=== PATIENT | female | born 1965 | race Caucasian/White ===

== ENCOUNTER 2019-08-22 16:58 | Emergency (ER) | payer OTHER ==
[~2019-08-22] VITALS: Ht 177.8 cm; Wt 70.3 kg
[~2019-08-22 16:58] MED LIST: PARO10TA4 PO; RISP4TAB17 PO
--- NOTE | 2019-08-22 17:10 | NUR ---
BIB [facility] FOR PSYCH EVAL, PT STATES SHE WANT'S TO KILL EVERYONE. pt awake, alert, -sob, nad noted, vss ,pending md harrington
[2019-08-22 17:24] LABS: BASOPHILS # (AUTO) 0.2 /CMM (0.0-0.2); BASOPHILS % (AUTO) 2.8 % (0.0-2.0); HEMATOCRIT 36 % (33-45); HEMOGLOBIN 11.8 g/dL (11.5-14.8); LYMPHOCYTES # (AUTO) 1.7 /CMM (0.8-4.8); LYMPHOCYTES % (AUTO) 21.9 % (20.0-44.0); MEAN CORPUSCULAR HGB CONC 33 g/dl (31.0-36.0); MEAN CORPUSCULAR VOLUME 87 fL (82-100); MONOCYTES # (AUTO) 0.7 /CMM (0.1-1.30); MONOCYTES % (AUTO) 8.4 % (2.0-12.0); NEUTROPHILS # (AUTO) 4.9 /CMM (1.8-8.9); NEUTROPHILS % (AUTO) 62.9 % (43.0-81.0); PLATELET COUNT (AUTO) 344 /CMM (150-450); RED BLOOD CELL COUNT(AUTO) 4.17 MIL/uL (4.0-5.2); WHITE BLOOD COUNT (AUTO) 7.8 K/uL (4.3-11.0)
[2019-08-22 17:31] LABS: CALCIUM, SERUM 9.3 mg/dL (8.5-10.1); CARBON DIOXIDE 29 mmol/L (21-32); CHLORIDE 99 mmol/L (98-107); GLUCOSE 113 mg/dL (74-106); POTASSIUM 3.7 mmol/L (3.5-5.1); SODIUM SERUM 136 mmol/L (136-145); UREA NITROGEN, BLOOD 24 mg/dL (7-18)
--- NOTE | 2019-08-22 17:34 | NUR ---
urine collected and sent to lab
[2019-08-22 17:37] LABS: ALANINE AMINOTRANSFERASE 22 U/L (12-78); ALBUMIN 3.9 g/dL (3.4-5.0); ALCOHOL, BLOOD < 3 mg/dL (0-0); ALKALINE PHOSPHATASE 65 U/L (46-116); ASPARTATE AMINOTRANSFERASE 22 U/L (15-37); BILIRUBIN,DIRECT 0.1 mg/dL (0.0-0.2); BILIRUBIN,TOTAL 0.4 mg/dL (0.2-1.0)
[2019-08-22 17:41] LABS: APPEARANCE,URINE Clear (CLEAR); BILIRUBIN,URINE Negative (NEGATIVE); BLOOD, URINE Negative Ery/uL (NEGATIVE); COLOR,URINE Yellow (YELLOW); KETONES,URINE Trace (NEGATIVE); LEUKOCYTE ESTERASE ,URINE Negative (NEGATIVE); NITRITE, URINE Negative (NEGATIVE); PROTEIN,URINE Negative (NEGATIVE); UGLUCOSE Negative (NEGATIVE); UROBILINOGEN,URINE 0.2 EU/dL (0.2)
[2019-08-22 17:43] LABS: ACETAMINOPHEN < 2 ug/ml (10-30); SALICYLATE 0.7 mg/dL (2.8-20.0)
[2019-08-22 17:56] LABS: BACTERIA,URINE Few /HPF (None Seen); RBC,URINE 0-2 /HPF (0-2); SQUAMOUS EPITHELIAL CELL,UR Moderate /HPF (None Seen); WBC,URINE 0-2 /HPF (0-3)
[2019-08-22] MEDS ORDERED: LIDOCAINE HCL/MPF 1% 30 ML VIAL IJ ONE (18:04)
--- NOTE | 2019-08-22 18:40 | NUR ---
CALLED [facility] FOR PSYCH EVAL, STATES IS ON HER WAY
--- NOTE | 2019-08-22 20:57 | NUR ---
pt will be going back to facility via private taxi. pt prefers to wait in the waiting room
--- NOTE | 2019-08-22 20:57 | NUR ---
Patient discharged to home in stable condition. Written and verbal after care instructions given. Patient verbalizes understanding of instruction.
[2019-08-22 21:30] VITALS: BP 130/70
== END 2019-08-22 21:31 | disposition home or self-care (01) ==
LOC: ER 17:05
DX: F25.9 Schizoaffective disorder, unspecified (principal); R45.1 Restlessness and agitation; H60.11 Cellulitis of right external ear; F32.9 Major depressive disorder, single episode, unspecified; Z88.0 Allergy status to penicillin; Z88.5 Allergy status to narcotic agent; Z88.1 Allergy status to other antibiotic agents; Z79.899 Other long term (current) drug therapy
CPT/HCPCS: 36415; 80048; 80076; 80305; 80307; 80329; 81001; 85025; 99284; G0480; J3490; 81000-TC

== ENCOUNTER 2019-11-20 11:05 | Inpatient (IN) | payer BC ==
[~2019-11-20] VITALS: Ht 172.7 cm; Wt 77.1 kg
--- NOTE | 2019-11-20 11:10 | NUR ---
LULA TEJADA [id number] From Board and care "Nausea/Vomiting/Abdominal pain/cough", to ER bed 5, hooked to electronic device monitor and pox, changed to hospital gown, provided w warm blanket, patient ao x 3, Dr Barbour at bedside
[2019-11-20] MEDS ORDERED: ONDANSETRON HCL/PF 4 MG/2 ML VIAL ONE (11:29)
[2019-11-20] MEDS ORDERED: LORAZEPAM INJ 2 MG/ML VIAL ONE (11:30)
[2019-11-20] MEDS ORDERED: ONDANSETRON HCL/PF - ER 4 MG/2 ML VIAL IV ONE (11:30)
[2019-11-20] MEDS ORDERED: IV NS 0.9% 1,000 ML BAG IV ONE (11:30)
[2019-11-20] MEDS ORDERED: LORAZEPAM INJ 2 MG/ML VIAL IV ONE (11:30)
[2019-11-20 11:46] LABS: BASOPHILS % (AUTO) 0.3 % (0.0-2.0); EOSINOPHILS % (AUTO) 0.4 % (0.0-6.0); HEMATOCRIT 37 % (33-45); HEMOGLOBIN 11.9 g/dL (11.5-14.8); LYMPHOCYTES # (AUTO) 1.1 /CMM (0.8-4.8); LYMPHOCYTES % (AUTO) 8.8 % (20.0-44.0); MEAN CORPUSCULAR HGB CONC 32 g/dl (31.0-36.0); MEAN CORPUSCULAR VOLUME 86 fL (82-100); MONOCYTES # (AUTO) 0.6 /CMM (0.1-1.30); MONOCYTES % (AUTO) 5.3 % (2.0-12.0); NEUTROPHILS # (AUTO) 10.2 /CMM (1.8-8.9); NEUTROPHILS % (AUTO) 85.2 % (43.0-81.0); PLATELET COUNT (AUTO) 585 /CMM (150-450); RED BLOOD CELL COUNT(AUTO) 4.35 MIL/uL (4.0-5.2)
[2019-11-20] MEDS ORDERED: LEVOFLOXACIN 750 MG /D5W 150ML 150 ML IV ONE ×2 (13:00→14:03)
--- NOTE | 2019-11-20 13:29 | NUR ---
CALLED [facility]
--- NOTE | 2019-11-20 13:29 | NUR ---
CALLED SURGERY ITS [facility]
[2019-11-20 13:32] LABS: ALBUMIN 3.4 g/dL (3.4-5.0); BILIRUBIN,DIRECT 0.1 mg/dL (0.0-0.2); BILIRUBIN,TOTAL 0.8 mg/dL (0.2-1.0); CALCIUM, SERUM 9.7 mg/dL (8.5-10.1); CREATININE 1.1 mg/dL (0.6-1.3); POTASSIUM 3.6 mmol/L (3.5-5.1); TOTAL PROTEIN, SERUM 9.1 g/dL (6.4-8.2)
--- NOTE | 2019-11-20 13:42 | NUR ---
REPORT GIVEN TO JANETH VERDUZCO FOR SARA PT WILL BE TRANSPORTED TO 1ST FLOOR
--- NOTE | 2019-11-20 14:30 | NUR ---
RN NOTE PATIENT RECEIVED FROM ER, IN FAIR CONDITION, ON 2L O2 VIA NC TOLERATING WELL, SATURATING WELL. VITAL SIGNS ARE STABLE. PATIENT CLEANED AND DRIED, PHOTOS OF SKIN ISSUES TAKEN AND PLACED IN THE CHART. PLACED ON SENIOR MECHANICAL TECHNICIAN, SR NOTED. ON ISOLATION FOR COVID R/O. ATTEMPTED TO PLACE AN NGT PER MD ORDER, UNSUCCESSFUL, PATIENT NOT COOPERATING. MD AWARE, ORDERED TO TRY AGAIN AFTER 7PM WHEN PT IS MORE STAB;LE. WILL ENDORSE TO PM NURSE. SAFETY MAINTAINED, CALL LIGHT WITHIN REACH, WILL CONTINUE TO MONITOR.
--- NOTE | 2019-11-20 14:31 | NUR ---
PT TRANSPORTED TO 1ST FLOOR
[2019-11-20 16:00] VITALS: BP 118/75
[2019-11-20] MEDS ORDERED: IV D5/0.45 NACL 1,000 ML IV PRN (16:13)
[2019-11-20] MEDS ORDERED: Z GUARD REMEDY 2 OZ OINT TP PRN (16:30)
[2019-11-20] MEDS ORDERED: ACETAMINOPHEN 325 MG TABLET PO PRN (16:30)
[2019-11-20] MEDS ORDERED: ZOLPIDEM TARTRATE 5 MG TABLET PO PRN (16:30)
[2019-11-20] MEDS ORDERED: ONDANSETRON HCL/PF 4 MG/2 ML VIAL IVP PRN (16:30)
[2019-11-20 17:20] LABS: ABG BASE EXCESS 9.6 mmol/L; ABG OXYGEN SATURATION 91.6 % (92.0-98.5); ABG PCO2 58.2 mmHg (35.0-45.0); ABG PO2 64.8 mmHg (75.0-100.0); AaDO2 15.2 mmHg; COHb 0.9 % (0.5-1.5); MetHb 0.4 % (0.0-1.5); O2Hb 90.4 % (94.0-97.0); SITE, ABG Right Radial; VENT MODE, BG Room Air
[2019-11-20] MEDS: METRONIDAZOLE 500MG/ NS 100ML 500 MG in PREMIX 1 EA IV SCH (17:28)
[2019-11-20 17:39] LABS: FERRITIN 128 ng/mL (8-388)
--- NOTE | 2019-11-20 18:14 | NUR ---
RN NOTE PATIENT REFUSING A CONDE PLACEMENT OR STRAIGHT CATH. UNABLE TO OBTAIN A URINE SAMPLE AT THE MOMENT. EDUCATED PATIENT TO USE A CALL LIGHT NEXT TIME SHE NEEDS TO URINATE SO WE CAN OBTAIN A URINALYSIS. PATIENT IS REFUSING AN NGT PLACEMENT WELL. WILL ENDORSE TO DEVELOPMENTAL MATHEMATICS PROFESSOR NURSE TO TRY AGAIN. PATIENT SAFETY IS MAINTAINED, CALL LIGHT WITHIN REACH, WILL CONTINUE TO MONITOR CLOSELY.
--- NOTE | 2019-11-20 19:15 | NUR ---
RN CLOSING NOTES PATIENT IN STABLE CONDITION, NO ACUTE CHANGES DURING MY SHIFT. ALL PATIENT NEEDS MET. ON 2L O2 VIA NC TOLERATING WELL, SATURATING WELL, NO S/S OF ACUTE DISTRESS NOTED. ALL SCHEDULED MEDS GIVEN ON TIME. UNABLE TO PLACE AN NGT AND FC DUE TO PATIENT REFUSING. CALL LIGHT WITHIN REACH, SAFETY MAINTAINED, ENDORSED TO TABLE TENDER NURSE TO CONTINUE CARE.
[2019-11-20 20:00] VITALS: BP 118/69
--- NOTE | 2019-11-20 20:34 | NUR ---
TELE/RN OPENING RECEIVED PATIENT A/O X3 WITH NO SIGN OF ANY DISTRESS AT THE MOMENT. PATIENT IS ON 2L OF O2 ON NC WITH NO COMPLAINT OF ANY SOB. PATIENT ON THE MONITOR SHOWING NSR HR 72. PATIENT HAS LAC #20 WITH D51/2NS RUNNING AT 75CC/HR. PATIENT PUPILS ARE REACTIVE TO LIGHT. LUNGS AUSCULTATED AND LOWER LOBES DIMINISHED. ALL SAFETY PRECAUTIONS APPLIED. WILL CONTINUE TO MONITOR PATIENT THROUGHOUT SHIFT.
[2019-11-20] MEDS: ENOXAPARIN SODIUM 40 MG/0.4 ML DISP.SYRIN SQ SCH (21:00)
--- NOTE | 2019-11-20 21:44 | NUR ---
TELE/RN PATIENT REFUSED LOVENOX SCHEDULED AT 2100. EXPLAINED BENEFITS AND WELL RISKS OF NON-ADMINISTRATIONS. PATIENT STILL REFUSED. WILL CONTINUE TO MONITOR PATIENT.
[2019-11-21] VITALS: BP 118/78
[2019-11-21] MEDS: METRONIDAZOLE 500MG/ NS 100ML 500 MG in PREMIX 1 EA IV SCH ×3 (01:20→16:02)
[2019-11-21 04:00] VITALS: BP 124/84
[2019-11-21 06:39] LABS: ALBUMIN 2.8 g/dL (3.4-5.0); BILIRUBIN,TOTAL 0.5 mg/dL (0.2-1.0); CALCIUM, SERUM 8.6 mg/dL (8.5-10.1); CREATININE 0.9 mg/dL (0.6-1.3); MAGNESIUM 2.2 mg/dL (1.8-2.4); PHOSPHORUS 2.9 mg/dL (2.5-4.9); POTASSIUM 3.6 mmol/L (3.5-5.1); TOTAL PROTEIN, SERUM 7.7 g/dL (6.4-8.2)
--- NOTE | 2019-11-21 07:10 | NUR ---
TELE/RN CLOSING PATIENT IN BED A/O X3 WITH NO SIGN OF ANY DISTRESS AT THE MOMENT. PATIENT ON 2L OF 02 SPO2 AT 95%. PATIENT CONTINUE WITH D5 1/2 NS RUNNING AT 75CC/HR. ALL SAFETY PRECAUTIONS HAVE BEEN APPLIED. ENDORSED PATIENT TO MORNING SHIFT NURSE FOR SARA.
--- NOTE | 2019-11-21 07:11 | NUR ---
MANAGER STRATEGY & ACCOUNT OPENING NOTE RECEIVED BEDSIDE REPORT. PT AWAKE IN BED, ALERT AND ORIENTED X 4, ON NC 2L/MIN, SATURATING WELL, RESPIRATIONS EVEN AND UNLABORED, NO SIGNS OF RESPIRATORY DISTRESS NOTED. SINUS RHYTHM ON MONITOR. IV SITE ON LEFT AC G20 INTACT, PATENT, D5 1/2 NS INFUSING AT 75CC/HR, NO SIGNS OF INFILTRATION NOTED. BED IN LOW POSITION, LOCKED, CALL LIGHT WITHIN REACH.
[2019-11-21 07:59] LABS: THYROID STIMULATING HORMONE 157.341 uIU/mL (0.358-3.74)
[2019-11-21 08:00] VITALS: BP 123/67
[2019-11-21 08:21] LABS: BASOPHILS % (AUTO) 0.7 % (0.0-2.0); EOSINOPHILS % (AUTO) 2.5 % (0.0-6.0); HEMATOCRIT 34 % (33-45); HEMOGLOBIN 10.8 g/dL (11.5-14.8); LYMPHOCYTES # (AUTO) 1.4 /CMM (0.8-4.8); LYMPHOCYTES % (AUTO) 21.1 % (20.0-44.0); MEAN CORPUSCULAR HGB CONC 32 g/dl (31.0-36.0); MEAN CORPUSCULAR VOLUME 86 fL (82-100); MONOCYTES # (AUTO) 0.6 /CMM (0.1-1.30); MONOCYTES % (AUTO) 9.3 % (2.0-12.0); NEUTROPHILS # (AUTO) 4.3 /CMM (1.8-8.9); NEUTROPHILS % (AUTO) 66.4 % (43.0-81.0); PLATELET COUNT (AUTO) 417 /CMM (150-450); RED BLOOD CELL COUNT(AUTO) 3.91 MIL/uL (4.0-5.2); WHITE BLOOD COUNT (AUTO) 6.4 K/uL (4.3-11.0)
[2019-11-21] MEDS: LEVOTHYROXINE INJ 100 MCG VIAL IV SCH (10:47)
[2019-11-21 12:00] VITALS: BP 97/70
--- NOTE | 2019-11-21 12:00 | NUR ---
PT REFUSED NG TUBE INSERTION
[2019-11-21] MEDS: LEVOFLOXACIN 500 MG /D5W 100ML 500 MG in PREMIX 1 EA IV SCH (12:20)
--- NOTE | 2019-11-21 14:00 | NUR ---
SPOKE WITH ROUTE PROCESS ADMINISTRATOR FOR AMIRAH JOHNSON, WHO WAS ABLE TO CONFIRM THAT PT'S BAG, CELL PHONE AND MONEY ARE IN HER ROOM AT THE BOARD AND CARE. PT WAS NOTIFIED.
[2019-11-21 16:00] VITALS: BP 126/74
--- NOTE | 2019-11-21 19:15 | NUR ---
TELE/RN OPENING NOTE RECEIVED PATIENT IN BED WITH NO SIGN OF ANY DISTRESS. PATIENT IS A/O X4 . ON 2L OF 02 ON NASAL CANNULA WITH NO SIGN OF SOB. PATIENT ON THE MONITOR SHOWING NSR HR 64. PATIENT ON ISOLATION PER PROTOCOL. ALL SAFETY PRECAUTIONS APPLIED. WILL CONTINUE TO MONITOR PATIENT THROUGHOUT SHIFT.
[2019-11-21 20:00] VITALS: BP 107/70
[2019-11-21] MEDS: ENOXAPARIN SODIUM 40 MG/0.4 ML DISP.SYRIN SQ SCH (21:00)
--- NOTE | 2019-11-21 21:09 | NUR ---
TELE/RN PATIENT REFUSED LOVENOX SCHEDULED AT 2100. EXPLAINED BENEFITS AND WELL RISKS OF NON-ADMINISTRATIONS. PATIENT STILL REFUSED. WILL CONTINUE TO MONITOR PATIENT.
[2019-11-21] MEDS: IV D5/ 0.9% NACL 1,000 ML IV PRN (23:27)
[2019-11-22] VITALS: BP 120/75
[2019-11-22 04:00] VITALS: BP 113/70
--- NOTE | 2019-11-22 05:11 | NUR ---
TELE/RN NOTE PATIENT REFUSING MORNING BLOOD DRAW FOR LABS. EXPLAINED BENEFITS AND THE IMPORTANCE OF THE LABS. WILL FOLLOW UP AND SEE IF SHE WILL ALLOW A LATER TIME FOR LABS.
--- NOTE | 2019-11-22 07:00 | NUR ---
TELE/RN CLOSING PATIENT ASLEEP IN BED. CURRENTLY NOT SHOWING ANY SIGNS OF ANY DISTRESS. PATIENT ON 2L OD 02 ON NC WITH NO SOB. PATIENT RUNNING LAC #22 WITH D5NS @ 125CC/HR. ALL SAFETY PRECAUTIONS APPLIED. ENDORSED PATIENT TO MORNING SHIFT NURSE FOR SARA.
--- NOTE | 2019-11-22 07:30 | NUR ---
IMAGING TECHNOLOGIST OPENING NOTE RECEIVED BEDSIDE REPORT. PT AWAKE IN BED, ALERT AND ORIENTED X 4, ON NC 2L/MIN, SATURATING WELL, RESPIRATIONS EVEN AND UNLABORED, NO SIGNS OF RESPIRATORY DISTRESS NOTED. SINUS RHYTHM ON MONITOR. IV SITE ON LEFT AC G20 INTACT, PATENT, D5 1/2 NS INFUSING AT 125CC/HR, NO SIGNS OF INFILTRATION NOTED. BED IN LOW POSITION, LOCKED, CALL LIGHT WITHIN REACH.
[2019-11-22] MEDS: LEVOTHYROXINE INJ 100 MCG VIAL IV SCH (07:53)
[2019-11-22 08:00] VITALS: BP 121/74
[2019-11-22] MEDS: METRONIDAZOLE 500MG/ NS 100ML 500 MG in PREMIX 1 EA IV SCH ×4 (08:10→17:07)
--- NOTE | 2019-11-22 11:00 | NUR ---
PT REFUSED SMALL BOWEL FOLLOW THROUGH
[2019-11-22] MEDS ORDERED: BISACODYL SUPP (10 MG) 10 MG/SUPP.RECT SUPP.RECT RC PRN (11:30)
[2019-11-22 12:00] VITALS: BP 129/84
[2019-11-22] MEDS: MINERAL OIL 133 ML (PYXIS) 1 EA ENEMA RC ONE ×2 (12:04→15:07)
[2019-11-22] MEDS: LEVOFLOXACIN 500 MG /D5W 100ML 500 MG in PREMIX 1 EA IV SCH (12:24)
[2019-11-22] MEDS ORDERED: MINERAL OIL 133 ML (PYXIS) 1 EA ENEMA RC ONE (15:00)
[2019-11-22] MEDS: IV D5/ 0.9% NACL 1,000 ML IV PRN (15:15)
[2019-11-22 15:28] LABS: BASOPHILS # (AUTO) 0.1 /CMM (0.0-0.2); BASOPHILS % (AUTO) 1.1 % (0.0-2.0); EOSINOPHILS % (AUTO) 2.9 % (0.0-6.0); HEMATOCRIT 36 % (33-45); HEMOGLOBIN 11.2 g/dL (11.5-14.8); LYMPHOCYTES # (AUTO) 1.6 /CMM (0.8-4.8); LYMPHOCYTES % (AUTO) 21.6 % (20.0-44.0); MEAN CORPUSCULAR HGB CONC 32 g/dl (31.0-36.0); MEAN CORPUSCULAR VOLUME 87 fL (82-100); MONOCYTES # (AUTO) 0.6 /CMM (0.1-1.30); MONOCYTES % (AUTO) 7.7 % (2.0-12.0); NEUTROPHILS # (AUTO) 5.1 /CMM (1.8-8.9); NEUTROPHILS % (AUTO) 66.7 % (43.0-81.0); PLATELET COUNT (AUTO) 501 /CMM (150-450); RED BLOOD CELL COUNT(AUTO) 4.12 MIL/uL (4.0-5.2); WHITE BLOOD COUNT (AUTO) 7.6 K/uL (4.3-11.0)
[2019-11-22 15:46] LABS: ALANINE AMINOTRANSFERASE 19 U/L (12-78); ALBUMIN 2.9 g/dL (3.4-5.0); ALKALINE PHOSPHATASE 98 U/L (46-116); ASPARTATE AMINOTRANSFERASE 13 U/L (15-37); BILIRUBIN,TOTAL 0.3 mg/dL (0.2-1.0); CALCIUM, SERUM 8.6 mg/dL (8.5-10.1); CARBON DIOXIDE 35 mmol/L (21-32); CHLORIDE 98 mmol/L (98-107); CREATININE 0.9 mg/dL (0.6-1.3); GLUCOSE 93 mg/dL (74-106); MAGNESIUM 2.1 mg/dL (1.8-2.4); PHOSPHORUS 1.8 mg/dL (2.5-4.9); POTASSIUM 3.3 mmol/L (3.5-5.1); SODIUM SERUM 138 mmol/L (136-145); TOTAL PROTEIN, SERUM 7.5 g/dL (6.4-8.2); UREA NITROGEN, BLOOD 11 mg/dL (7-18)
[2019-11-22 15:53] LABS: THYROID STIMULATING HORMONE 130.847 uIU/mL (0.358-3.74)
[2019-11-22 16:00] VITALS: BP 132/75
--- NOTE | 2019-11-22 18:34 | NUR ---
ROUND KILN DRAWER CLOSING NOTE PT AWAKE IN BED, ALERT AND ORIENTED X 3, ON NC 2L/MIN, SATURATING WELL, RESPIRATIONS EVEN AND UNLABORED, NO SIGNS OF RESPIRATORY DISTRESS NOTED. SINUS RHYTHM ON MONITOR. IV SITE ON LEFT AC G20 INTACT, PATENT, D5 1/2 NS INFUSING AT 125CC/HR, NO SIGNS OF INFILTRATION NOTED. BED IN LOW POSITION, LOCKED, CALL LIGHT WITHIN REACH. ALL DUE MEDS GIVEN. NO BOWEL MOVEMENT SINCE FLEET ENEMA WAS ADMINISTERED. WILL ENDORSE TO NOC SHIFT NURSE.
--- NOTE | 2019-11-22 19:30 | NUR ---
RETAIL SALES MANAGER OPENING NOTE, RECEIVED PATIENT IN BED AWAKE A/O X3, ABLE TO VERBALIZED NEEDS AND CONCERNS, ON NC 2L/MIN WITH OS SAT LEVEL >94%, NSR IN TELE MONITOR WITH HR IN THE 70S AT THIS TIME, NO S/O OF SOB/ACUTE RESPIRATORY DISTRESS NOTED AT THIS TIME, IV SITE ON LEFT AC G20 PATENT AND INTACT, D5 1/2 NS INFUSING AT 125CC/HR, AND PATIENT TOLERATED WELL, NO S/S OF INFILTRATION/ABNORMALITY NOTED AT SITE, BED LOCKED/LOW POSITION, CALL LIGHT WITHIN REACH, WILL CONTINUE TO MONITOR CLOSELY.
[2019-11-22 20:00] VITALS: BP 96/70
[2019-11-22] MEDS: ENOXAPARIN SODIUM 40 MG/0.4 ML DISP.SYRIN SQ SCH (21:00)
--- NOTE | 2019-11-22 21:15 | NUR ---
RN NOTES, PATIENT REFUSED LOVENOX AT THIS TIME, EXPLAINED RISKS AND BENEFITS, STILL REFUSED.
--- NOTE | 2019-11-22 21:22 | NUR ---
RN NOTES, PATIENT HAD A BIG BOWEL MOVEMENT AT THIS TIME.
[2019-11-23] VITALS: BP 122/77
[2019-11-23] MEDS: METRONIDAZOLE 500MG/ NS 100ML 500 MG in PREMIX 1 EA IV SCH ×3 (00:11→16:56)
[2019-11-23 04:00] VITALS: BP 124/74
[2019-11-23] MEDS: IV D5/ 0.9% NACL 1,000 ML IV PRN (05:41)
--- NOTE | 2019-11-23 06:51 | NUR ---
RN CLOSING NOTES, PATIENT IN BED AWAKE A/O ABLE TO VERBALIZE NEEDS AND CONCERNS, BREATHING EVEN AND UNLABORED, NO SOB/ACUTE DISTRESS NOTED, NO SIGNIFICANT CHANGE IN CONDITION WITH O2 SAT LEVEL 9497% AT 2LPM VIA NC, 3 LARGE BOWEL MOVEMENT LAST NIGHT, CONTINUE NPO, AND D5 NS INFUSING AT 125ML/HR VIA LEFT AC, NO ABNORMALITY /INFILTRATION NOTED, PATIENT TOLERATED WELL, ALL NEED PROVIDED, PATIENT DRY AND CLEAN, AND WELL REPOSITIONED, WILL ENDORSE CONTINUITY OF CARE TO ONCOMING NURSE.
--- NOTE | 2019-11-23 07:10 | NUR ---
RN opening note: Received patient in bed and asleep. On cont. 02 via NC @2lpm and tolerating well. No SOB, No respiratory distress noted. IV site clean, dry, patent and intact. IV site clean, dry, patent and intact. Tele monitor showing Sinus rhythm noted. Isolation precautions strictly observed. Call light in reach. Side rails up x3. Bed locked, low and at semi-ward's position. Safety ensured and observed. Patient is on NPO for small bowel obstruction, abdominal distention observed. Will continue to monitor.
[2019-11-23] MEDS: LEVOTHYROXINE INJ 100 MCG VIAL IV SCH (07:56)
[2019-11-23 08:00] VITALS: BP 134/85
[2019-11-23] MEDS: POTASSIUM PHOSPHATE MM 7.5 MMOL in IV D5W 100 ML IV SCH ×2 (09:00→12:00)
[2019-11-23] MEDS ORDERED: POTASSIUM PHOSPHATE MM 15 MMOL in IV NS 0.9% 250 ML IV SCH (09:00)
[2019-11-23] MEDS ORDERED: DIATR MEGLU/DIATRIZOATE SODIUM 120 ML BOTTLE (GASTROGRAPHIN) ONE (10:54)
[2019-11-23] MEDS: LEVOFLOXACIN 500 MG /D5W 100ML 500 MG in PREMIX 1 EA IV SCH (13:08)
[2019-11-23 16:00] VITALS: BP 129/83
--- NOTE | 2019-11-23 19:15 | NUR ---
RN closing note: Patient awake, alert and oriented x4. On cont. 02 via NC @2lpm and tolerating well. No SOB, No respiratory distress noted. IV site clean, dry, patent and intact. Diet started with clear liquid diet per Lori White NP. KUB in AM was also ordered. Orders noted and carried out. No pain reported by patient. Call light in reach. Side rails up x3. Bed locked, low and at semi-ward's position. Safety ensured and observed. abdominal distention still observed. Bowel movement x3 noted on shift. Endorsed to oncoming shift for SARA.
[2019-11-23 20:00] VITALS: BP 124/74
--- NOTE | 2019-11-23 20:00 | NUR ---
MS1 RN NOTES RECEIVED ON BED A/O X3-4,BREATHING REGULAR, NOT IN ANY FORM OF DISTRESS,IV SITE INFILTRATED.NEW SALINE LOCK PLACE ON LEFT HAND #20,FLUSH AND SECURED.NOTED REDNESS ON RIGHT LOWER LEG,ELEVATED ON PILLOWS.ON CLEAR LIQUID DIET.CALL LIGHT IN REACH, NEEDS ANTICIPATED.
[2019-11-23] MEDS: ENOXAPARIN SODIUM 40 MG/0.4 ML DISP.SYRIN SQ SCH (21:00)
--- NOTE | 2019-11-23 21:00 | NUR ---
MS1 RN NOTES PATIENT REFUSED LOVENOX.EXPLAINED RISK AND BENEFITS BUT STILL REFUSED
[2019-11-24] MEDS: METRONIDAZOLE 500MG/ NS 100ML 500 MG in PREMIX 1 EA IV SCH ×2 (00:46→09:00)
[2019-11-24] MEDS: IV D5/ 0.9% NACL 1,000 ML IV PRN (02:11)
[2019-11-24 04:00] VITALS: BP 136/71
--- NOTE | 2019-11-24 06:57 | NUR ---
MS RN NOTES SLEPT WELL AT NIGHT.REFUSED BLOOD DRAW THIS MORNING.HAD BOWEL MOVEMENT X2.POSSIBLE D/C TODAY.IN NO ACUTE DISTRESS
--- NOTE | 2019-11-24 07:00 | NUR ---
RN OPENING NOTES RECEIVED PATIENT IN BED RESTING. NOT IN ANY FORM OF DISTRESS. NO SOB/ DENIED PAIN OR DISCOMFORT AT THIS TIME. IV ACCESS INTACT AND PATENT. KEPT PATIENT SAFE AND COMFORTABLE. BED IN LOW/LOCKED POSITION, SIDERAILS UPX2, CALL LIGHT IN REACH. WILL CONT TO MONITOR ACCORDINGLY.
[2019-11-24] MEDS: LEVOTHYROXINE INJ 100 MCG VIAL IV SCH (07:30)
[2019-11-24 08:00] VITALS: BP 130/68
--- NOTE | 2019-11-24 09:00 | NUR ---
rn notes patient in stable condition. endorsed to DAX WAGNER
--- NOTE | 2019-11-24 09:45 | NUR ---
MS RN Notes Received patient from prior RN No medications given no charting of baseline assessment completed. Patient is alert and oriented x3 and in stable condition.
[2019-11-24 12:00] VITALS: BP 130/68
[2019-11-24] MEDS: LEVOFLOXACIN 500 MG /D5W 100ML 500 MG in PREMIX 1 EA IV SCH (12:20)
--- NOTE | 2019-11-24 12:44 | NUR ---
RN NOTE RECITED PATENT FROM BERNARD VERDUZCO RN ALERT ORIENTED SPEAKING ON PHONE, ON RA NO SOB NOTED AT THIS TIME , BLE STILL WITH REDNESS HL ON LT HAND INTACT AND FLUSHED WELL , BED IN LOWEST AND LOCKED POSITION , PLAN OF CARE DISCUSSED WITH PATIENT, CALL LIGHT WITHIN REACH , WILL CONT TO MONITOR Addendum: 11/24/19 at 1301 by ANGELICA MEDINA RN RECEIVED WRONG SPELLING
--- NOTE | 2019-11-24 13:02 | NUR ---
MS RN NOTE STILL REFUSING BLOOD DROWN, OFFERED X3 EXPLAINED OF IMPORTANCE, STILL REFINED
[2019-11-24] MEDS ORDERED: LEVO100T9 PO (13:03)
[2019-11-24] MEDS ORDERED: LEVO500T90 PO (13:03)
--- NOTE | 2019-11-24 13:04 | NUR ---
MS RN NOTE PER DR SHIN OK TO DISCHARGE TO [facility]
--- NOTE | 2019-11-24 14:10 | NUR ---
ms rn note refused to do picture ,offered and explained that per policy of hospital need to do picture, patient has redness on rt leg still strongly refused to do picture upon discharge
--- NOTE | 2019-11-24 14:40 | NUR ---
MS RN NOTE CALLED TO PAT SURGERY RN RN ANGLEDOZER OPERATOR OK TO HAVE FULL LIQUID DIET
--- NOTE | 2019-11-24 14:41 | NUR ---
MS RN NOTE DISCHARGE INSTRUCTION GIVEN, UNDERSTOOD, INSTRUCTED HOW TO TAKE NEW PX AND POSSIBLE SIDE EFFECTS , PX GIVEN , ALSO INSTRUCTED TO F\U WITH PCP AND RETURN FOR WORSENING SYMPTOMS AND F\U WITH SURGEON IB ABDOMINAL PAIN PERSIST ,HL REMOVED DRY DRESSING APPLIED, NO BLEEDING NOTED, NURSING STAFF FROM [facility] WILL ESTATE AND TRUST TAX PRINCIPAL PATIENT AT 3 PM WILL F\U,
--- NOTE | 2019-11-24 14:59 | NUR ---
MS RN NOTE TAKEN TO LOBBY WITH BINDING CEMENTER FRENCH CORD ON , ALERT ORIENTED ,MEENA FROM [facility] NURSING STAFF FROM IS AWAITING IN LOBBY , WENT HOME WITH STABLE CONDITION
== END 2019-11-24 15:00 | disposition home or self-care (01) | DRG 388 ==
LOC: ER 11:07 → MEDSG1 13:37 → TELE1 14:50 → MEDSG1 11-23 08:13
PROVIDERS: ADMIT Nurse Practitioner Acute Care; ATTEND Nurse Practitioner Acute Care
DX: K56.600 Partial intestinal obstruction, unspecified as to cause (principal); J69.0 Pneumonitis due to inhalation of food and vomit; J96.00 Acute respiratory failure, unspecified whether with hypoxia or hypercapnia; L03.115 Cellulitis of right lower limb; E44.0 Moderate protein-calorie malnutrition; J98.11 Atelectasis; F25.9 Schizoaffective disorder, unspecified; F32.9 Major depressive disorder, single episode, unspecified; Z90.49 Acquired absence of other specified parts of digestive tract; E03.9 Hypothyroidism, unspecified; E86.0 Dehydration; K44.9 Diaphragmatic hernia without obstruction or gangrene; D72.829 Elevated white blood cell count, unspecified; D47.3 Essential (hemorrhagic) thrombocythemia; E88.09 Other disorders of plasma-protein metabolism, not elsewhere classified; R73.9 Hyperglycemia, unspecified; E06.9 Thyroiditis, unspecified; M16.11 Unilateral primary osteoarthritis, right hip; Z68.25 Body mass index [BMI] 25.0-25.9, adult
CPT/HCPCS: 36415; 36600; 71045-TC; 74018; 74250-TC; 76536-TC; 80048-TC; 80053-TC; 80061-TC; 80076-TC; 82728-TC; 82803-TC; 83540-TC; 83615-TC; 83690-TC; 83735-TC; 84100-TC; 84439-TC; 84443-TC; 84484-TC; 85025-TC; 85730-TC; 87040-TC; 87070-TC; 87081-TC; 93307-TC; 94799-TC; A4216; A6403; G0378; J1650; J1956; J2060; J2405; J3490; J7030; J7042; J7050; J7060; Q9963